=== PATIENT | female | born 1930 | race African-American/Black ===

== ENCOUNTER → 2016-07-19 | Outpatient (CLI) | payer OTHER ==
[~2016-07-19] VITALS: Ht 152.4 cm; Wt 79.4 kg
[~2016-07-19] MED LIST: ALEVE220 MG PO; ASPIRIN EC81 M1 PO; BINOSTO70 MG PO; BIOTIN1 MG PO; CALCIUM500 M1 PO; CENTRUM SILVER1 EAC4 PO; COLACE100 MG PO; COUMADIN 5 MG TA5 M1 PO; CYMBALTA20 MG PO; ENOXAPARIN40 MG/0.1 SUBQ; ESSENTIAL FATTY ACID PO; FLONASE 0.05%50 MCG NASAL; GLUCOSAMINE HC500 MG PO; HAIR-SKIN-NAIL1 EACH PO; HYDROXYCHLOROQ200 M1 PO; IBUPROFEN 600600 M1; IBUPROFEN 600600 M1 PO; IBUPROFEN 800800 M1 PO; INSTAFLEX PO; LOTREL 10-20 M1 EACH PO; LOTREL 5-10 MG1 EACH PO; MULTI VITAMIN1 EACH PO; MULTIVITAMINS1 EAC7; OMEGA-31000 M1 PO; OXYCODONE HCL 55 MG PO; PANTOPRAZOLE SO40 M1 PO; PRAVACHOL; PRAVACHOL PO; PRAVACHOL20 MG PO; PRILOSEC 20 MG20 MG PO; PRILOSEC20 MG PO; TRAMADOL 50 MG50 MG; TRAMADOL 50 MG50 MG PO; TYLENOL325 MG PO; VALIUM5 MG PO; VITAMIN C120 GM PO; VITAMIN D35000 UNI1 PO; VITAMIN D400 UNI1 PO; ZOFRAN ODT4 MG PO; ZYRTEC10 M1; ZYRTEC10 M2 PO; [UNRECOGNIZED DRUG - OTHER]; [UNRECOGNIZED DRUG - OTHER]; [UNRECOGNIZED DRUG - OTHER] PO
--- NOTE | ~2016-07-19 | S ---
[facility] [address] [place] [address] SURGICAL PATH RPT PROCEDURE Name: SITA KOENIG Room #: REG MARILYN Watt#: [id number] Admission: 07/19/16 Date of : [birth year] Discharge: Report #: [id number] Path Case #: [id number] PATHOLOGY REPORT DRAFT COLLECTION DATE: 07/19/2016 RECEIVED DATE: 07/19/2016 SPECIMEN(S) RECEIVED: Tracie ulloa
--- NOTE | ~2016-07-19 | P ---
[facility] [place] [address] PROCEDURE REPORT Name: SITA KOENIG Room #: REG Mary Watt#: [id number] Admission: 07/19/16 Attend Phys: Veto Benton Discharge: Date of : [birth year] Report #: [id number] THIS REPORT FOR: //name// CC: Veto Douglass MD DATE OF SERVICE: 07/19/2016 PROCEDURE PERFORMED: Upper endoscopy with biopsies. HISTORY OF PRESENT ILLNESS: The patient is an 85-year-old female with recent melanotic stools beginning on 06/29/2016. She has been on aspirin on a regular basis in the past. She was started on Protonix on 07/07/2016, and since that time, she has not had any further melanotic stools. Symptoms are also associated with nausea, vomiting, and diarrhea at that time. The patient has had an EGD and colonoscopy by myself 2 years ago. Colonoscopy showed sigmoid diverticulosis and internal hemorrhoids. EGD at that time showed a mild Schatzki's ring, which was dilated, otherwise normal. PROCEDURE: The risks and benefits of the procedure were explained to the patient, those risks including, but not limited to bleeding, perforation, the risk of sedation. She understood these risks and gave informed consent. Sedation was given using propofol per anesthesia. Next, using a standard [employer] upper endoscope, the scope was placed in the patient's mouth and advanced under direct vision through the esophagus, stomach and into the second portion of the duodenum. The esophagus was normal throughout. The GE junction was normal. Overall, the gastric mucosa was normal in the fundus and body. A single erosion was noted in the gastric antrum. No evidence of bleeding. Biopsies were obtained to rule out H. pylori. The pylorus was normal and patent. The duodenal bulb, first and second portion were all normal. The scope was then withdrawn and the procedure terminated. The patient tolerated the procedure well. IMPRESSION: 1. Antral erosion. 2. Otherwise, normal upper endoscopy. RECOMMENDATIONS: 1. Await biopsy results. 2. I suspect antral erosion may have been an ulcer several weeks ago prior to the patient's starting PPI therapy. There was no evidence of bleeding on exam today. The patient is not having symptoms at this time. We would continue daily PPI therapy indefinitely as the patient is on aspirin on a regular basis. [address] [address] PROCEDURE REPORT Name: SITA KOENIGU Room #: REG MARILYN Watt#: [id number] Admission: 07/19/16 Attend Phys: Veto Benton Discharge: Date of : [birth year] Report #: [id number] Thank you for allowing me to participate in her care. <ELECTRONICALLY SIGNED> By: Vteo Berry MD 07/20/16 [id number] Veto Berry MD /laura
== END | disposition home or self-care (01) ==
LOC: GI 08:23
DX: K92.1 Melena (principal); K25.9 Gastric ulcer, unspecified as acute or chronic, without hemorrhage or perforation; Z87.891 Personal history of nicotine dependence; I10 Essential (primary) hypertension; E78.00 Pure hypercholesterolemia, unspecified; Z85.3 Personal history of malignant neoplasm of breast; Z90.710 Acquired absence of both cervix and uterus; Z90.49 Acquired absence of other specified parts of digestive tract; M81.0 Age-related osteoporosis without current pathological fracture; K21.9 Gastro-esophageal reflux disease without esophagitis